=== PATIENT | female | born 1990 | race Caucasian/White ===

== ENCOUNTER 2024-05-21 10:08 | Day surgery (SDC) | payer OTHER ==
[2024-05-20 11:16] VITALS: BMI 39.9
[2024-05-21 12:27] VITALS: RESP 16
[2024-05-21 12:48] VITALS: TEMP 97.6
[2024-05-21 13:08] VITALS: BP 127/88; PULSE 115
== END 2024-05-21 13:05 | disposition home or self-care (01) ==
LOC: FECT 10:08 → SUATTDRO 10:08 → FECT 13:05
PROVIDERS: ATTEND Student in an Organized Health Care Education/Training Program
PROC: GZB4ZZZ Other Electroconvulsive Therapy (ICD-10-PCS; principal; 2024-05-21 11:30)
DX: F32.A Depression, unspecified (principal); E28.2 Polycystic ovarian syndrome
CPT/HCPCS: 81025; 90870; 93005; 93010; 94760

== ENCOUNTER 2024-05-23 09:56 | Day surgery (SDC) | payer OTHER ==
[2024-05-21 14:03] VITALS: BMI 39.9
[2024-05-23 11:38] VITALS: TEMP 98.4
[2024-05-23 12:17] VITALS: BP 136/84; PULSE 110; RESP 18
== END 2024-05-23 12:16 | disposition home or self-care (01) ==
LOC: FECT 09:56
PROVIDERS: ATTEND Psychiatry & Neurology Psychiatry
PROC: GZB4ZZZ Other Electroconvulsive Therapy (ICD-10-PCS; principal; 2024-05-23 12:45)
DX: F33.2 Major depressive disorder, recurrent severe without psychotic features (principal)
CPT/HCPCS: 90870; 94760

== ENCOUNTER 2024-05-28 10:20 | Day surgery (SDC) | payer OTHER ==
[2024-05-28 10:36] VITALS: BMI 39.9
[2024-05-28 13:02] VITALS: PULSE 118; TEMP 97.4
[2024-05-28 13:39] VITALS: BP 129/84; RESP 18
== END 2024-05-28 13:35 | disposition home or self-care (01) ==
LOC: FECT 10:20
PROVIDERS: ATTEND Student in an Organized Health Care Education/Training Program
PROC: GZB4ZZZ Other Electroconvulsive Therapy (ICD-10-PCS; principal; 2024-05-28 12:20)
DX: F33.9 Major depressive disorder, recurrent, unspecified (principal)
CPT/HCPCS: 81025; 90870; 94760

== ENCOUNTER → 2024-05-31 | Day surgery (SDC) | payer OTHER ==
[2024-05-23 12:21] VITALS: BMI 39.9
[~2024-05-31] MED LIST: KETAMINE HCL 100 MG/ML - 5ML VIAL ONE; KETAMINE HCL 200 MG/20 ML VIAL ONE
[2024-05-31 08:30] VITALS: TEMP 97.9
[2024-05-31 09:00] VITALS: BP 124/85; PULSE 111; RESP 19
== END | disposition home or self-care (01) ==
LOC: FECT 06:26
PROVIDERS: ATTEND Student in an Organized Health Care Education/Training Program
PROC: GZB4ZZZ Other Electroconvulsive Therapy (ICD-10-PCS; principal; 2024-05-31 08:09)
DX: F33.2 Major depressive disorder, recurrent severe without psychotic features (principal)
CPT/HCPCS: 81025; 90870; 94760

== ENCOUNTER 2024-06-04 14:24 | Day surgery (SDC) | payer OTHER ==
[2024-05-29 17:14] VITALS: BMI 39.9
[2024-06-04] MEDS ORDERED: LACTATED RINGERS SOLUTION 1,000 ML IV SCH (15:00)
[2024-06-04 17:10] VITALS: BP 126/79; PULSE 114; RESP 16; TEMP 99
== END 2024-06-04 17:00 | disposition home or self-care (01) ==
LOC: FECT 14:24
PROVIDERS: ATTEND Student in an Organized Health Care Education/Training Program
PROC: GZB4ZZZ Other Electroconvulsive Therapy (ICD-10-PCS; principal; 2024-06-04 16:05)
DX: F32.A Depression, unspecified (principal)
CPT/HCPCS: 81025; 90870; 94760

== ENCOUNTER 2024-06-28 07:46 | Day surgery (SDC) | payer OTHER ==
[2024-06-06 13:56] VITALS: BMI 39.9
[2024-06-28 10:24] VITALS: RESP 16
[2024-06-28 10:39] VITALS: PULSE 126; TEMP 98.2
[2024-06-28 10:53] VITALS: BP 127/79
== END 2024-06-28 11:40 | disposition home or self-care (01) ==
LOC: FECT 07:46
PROVIDERS: ATTEND Student in an Organized Health Care Education/Training Program
PROC: GZB4ZZZ Other Electroconvulsive Therapy (ICD-10-PCS; principal; 2024-06-28 09:51)
DX: F32.A Depression, unspecified (principal)
CPT/HCPCS: 81025; 90870; 94760

== ENCOUNTER 2024-07-04 08:35 | Day surgery (SDC) | payer OTHER ==
[2024-05-29 17:20] VITALS: BMI 39.9
[2024-07-04 10:12] VITALS: TEMP 98.4
[2024-07-04 11:22] VITALS: BP 128/72; PULSE 112; RESP 18
== END 2024-07-04 11:58 | disposition home or self-care (01) ==
LOC: FECT 08:35
PROVIDERS: ATTEND Student in an Organized Health Care Education/Training Program
PROC: GZB4ZZZ Other Electroconvulsive Therapy (ICD-10-PCS; principal; 2024-07-04 09:15)
DX: F32.A Depression, unspecified (principal)
CPT/HCPCS: 81025; 90870; 94760

== ENCOUNTER 2024-07-11 09:45 | Day surgery (SDC) | payer OTHER ==
[2024-07-04 16:02] VITALS: BMI 39.9
[2024-07-11 14:00] VITALS: RESP 17
[2024-07-11 15:59] VITALS: TEMP 98.9
[2024-07-11 16:39] VITALS: BP 100/60; PULSE 100
== END 2024-07-11 13:00 | disposition home or self-care (01) ==
LOC: FECT 09:45
PROVIDERS: ATTEND Student in an Organized Health Care Education/Training Program
PROC: GZB4ZZZ Other Electroconvulsive Therapy (ICD-10-PCS; principal; 2024-07-11 10:35)
DX: F33.2 Major depressive disorder, recurrent severe without psychotic features (principal)
CPT/HCPCS: 81025; 90870; 94760

== ENCOUNTER 2024-07-25 07:33 | Day surgery (SDC) | payer OTHER ==
[2024-07-11 17:04] VITALS: BMI 39.9
[2024-07-25] MEDS ORDERED: PROPOFOL 20 ML ONE (08:46)
[2024-07-25] MEDS ORDERED: SUCCINYLCHOLINE CHLORIDE 200 MG/10 ML SYRINGE ONE (08:46)
[2024-07-25] MEDS ORDERED: KETAMINE HCL 100 MG/ML - 5ML VIAL ONE (09:09)
[2024-07-25] MEDS ORDERED: KETOROLAC TROMETHAMINE 30 MG/1 ML VIAL ONE (09:09)
[2024-07-25 10:04] VITALS: RESP 16
[2024-07-25 10:08] VITALS: TEMP 98.3
[2024-07-25 10:34] VITALS: BP 121/76; PULSE 109
== END 2024-07-25 11:00 | disposition home or self-care (01) ==
LOC: FECT 07:33
PROVIDERS: ATTEND Student in an Organized Health Care Education/Training Program
PROC: GZB4ZZZ Other Electroconvulsive Therapy (ICD-10-PCS; principal; 2024-07-25 09:20)
DX: F33.2 Major depressive disorder, recurrent severe without psychotic features (principal)
CPT/HCPCS: 81025; 82962; 90870; 94760

== ENCOUNTER 2024-08-08 11:27 | Day surgery (SDC) | payer OTHER ==
[2024-08-02 11:13] VITALS: BMI 39.9
[2024-08-08 12:08] LABS: ABSOLUTE IMMATURE GRANULOCYTES 0.03 x10^3/uL (0.0-0.031); BASOPHILS # 0.03 x10^3/uL (0.01-0.08); EOSINOPHIL % 0.3 % (0.7-5.8); EOSINOPHILS # 0.03 x10^3/uL (0.04-0.36); HEMATOCRIT 42.8 % (34.1-44.9); HEMOGLOBIN 14.8 g/dL (11.2-15.7); MCHC 34.6 g/dl (32.2-35.5); MEAN CELL VOLUME 84.3 fl (79.4-94.8); MEAN PLT VOLUME 8.7 fl (9.4-12.3); MONOCYTE # 0.52 x10^3/uL (0.24-0.86); MONOCYTE % 5.1 % (4.7-12.5); PLATELET COUNT # 352 x10^3/uL (182-369)
[2024-08-08 12:31] LABS: ALBUMIN 4.5 g/dl (3.4-5.0); BILIRUBIN,TOTAL 0.5 mg/dl (0.2-1); CALCIUM 9.3 mg/dl (8.5-10.1); CREATININE 0.7 mg/dl (0.6-1.3); POTASSIUM 4.2 mmol/L (3.5-5.1); TOT PROT 6.9 g/dl (6.4-8.2)
[2024-08-08] MEDS ORDERED: KETAMINE HCL 100 MG/ML - 5ML VIAL ONE (14:05)
[2024-08-08] MEDS ORDERED: SUGAMMADEX SODIUM 200 MG/2 ML VIAL ONE (14:09)
[2024-08-08] MEDS ORDERED: PROPOFOL 20 ML ONE (14:09)
[2024-08-08] MEDS ORDERED: KETOROLAC TROMETHAMINE 30 MG/1 ML VIAL ONE (14:11)
[2024-08-08] MEDS ORDERED: DEXAMETHASONE SOD PHOSPHATE 4 MG/1 ML VIAL ONE (14:11)
[2024-08-08] MEDS ORDERED: ONDANSETRON 4 MG/2 ML VIAL ONE (14:11)
[2024-08-08] MEDS ORDERED: ESMOLOL HCL 100,000 MCG/10 ML VIAL ONE (14:12)
[2024-08-08 15:03] VITALS: TEMP 98.2
[2024-08-08 15:23] VITALS: BP 126/72; PULSE 114; RESP 16
== END 2024-08-08 15:25 | disposition home or self-care (01) ==
LOC: FECT 11:27
PROVIDERS: ATTEND Student in an Organized Health Care Education/Training Program
PROC: GZB4ZZZ Other Electroconvulsive Therapy (ICD-10-PCS; principal; 2024-08-08 14:15)
DX: F32.A Depression, unspecified (principal)
CPT/HCPCS: 36415; 80053; 81025; 85025; 90870; 94760

== ENCOUNTER 2024-08-22 08:20 | Day surgery (SDC) | payer OTHER ==
[2024-08-19 10:13] VITALS: BMI 39.9
[2024-08-22] MEDS ORDERED: KETAMINE HCL 100 MG/ML - 5ML VIAL ONE (09:33)
[2024-08-22] MEDS ORDERED: ESMOLOL HCL 100,000 MCG/10 ML VIAL ONE (09:49)
[2024-08-22 10:35] VITALS: RESP 18; TEMP 97.6
[2024-08-22 11:50] VITALS: BP 121/78; PULSE 117
== END 2024-08-22 12:26 | disposition home or self-care (01) ==
LOC: FECT 08:20
PROVIDERS: ATTEND Psychiatry & Neurology Psychiatry
PROC: GZB4ZZZ Other Electroconvulsive Therapy (ICD-10-PCS; principal; 2024-08-22 09:52)
DX: F32.A Depression, unspecified (principal)
CPT/HCPCS: 81025; 90870; 94760

== ENCOUNTER 2024-09-12 09:03 | Day surgery (SDC) | payer OTHER ==
[2024-09-12 09:30] VITALS: BMI 38.7
[2024-09-12] MEDS ORDERED: KETAMINE HCL 100 MG/ML - 5ML VIAL ONE (10:39)
[2024-09-12 11:12] VITALS: RESP 16
[2024-09-12 11:14] VITALS: PULSE 115
[2024-09-12 12:47] VITALS: BP 127/78; TEMP 98.8
== END 2024-09-12 12:00 | disposition home or self-care (01) ==
LOC: FECT 09:03
PROVIDERS: ATTEND Student in an Organized Health Care Education/Training Program
PROC: GZB4ZZZ Other Electroconvulsive Therapy (ICD-10-PCS; principal; 2024-09-12 10:53)
DX: F32.A Depression, unspecified (principal)
CPT/HCPCS: 81025; 90870; 94760